=== PATIENT | female | born 1980 | race Asian ===

== ENCOUNTER → 2018-07-02 15:32 | Outpatient (CLI) | payer MEDICAID, SELFPAY ==
[2018-07-02 14:40] VITALS: BMI 21.3
[2018-07-02 16:47] LABS: Follicle Stimulating Hormone 3.4 mIU/mL; Thyroid Stim Hormone (TSH) 1.87 uIU/mL (0.358-3.74)
[2018-07-02 16:48] LABS: Estradiol 104.2 pg/mL; Prolactin 8.1 ng/mL
[2018-07-05 06:38] LABS: DHEA Sulfate 83.6 ug/dL (57.3-279.2)
[2018-07-06 11:09] LABS: Testosterone Free 0.7 pg/mL (0.0-4.2)
[2018-07-08 14:24] LABS: HPV APTIMA, High Risk Negative (Negative)
[2018-07-10 11:31] LABS: 17-Hydroxyprogesterone 171 ng/dL (.)
== END ==
PROVIDERS: Family Provider Internal Medicine; PCP Internal Medicine; Visit Provider Obstetrics & Gynecology
DX: Z12.4 Encounter for screening for malignant neoplasm of cervix (principal); N91.5 Oligomenorrhea, unspecified
CPT/HCPCS: 36415; 82627; 82670; 83001; 83498; 84146; 84402; 84443; 87624; 88175; 82626; G0145

== ENCOUNTER → 2023-08-22 | Outpatient (CLI) | payer BC, SELFPAY ==
[2023-08-22 15:45] LABS: Absolute Lymphocyte Count 2.02 X10^3/uL (0.83-4.51); Absolute Neutrophil Count 7.6 X10^3/uL (2.0-7.7); Basophil# 0.06 X10^3/uL; Basophil% 0.6 % (0-1); Eosinophil# 0.16 X10^3/uL; Eosinophils% 1.5 % (0-5); Hematocrit 36.6 % (37-47); Lymphocyte # 2.02 X10^3/ul (0.83-4.51); Lymphocyte % 19.2 % (19-41); Mean Corp Hgb Conc 32.8 g/dL (32-36); Mean Corpuscular Hgb 30.9 pg (27.0-32.0); Mean Corpuscular Volume 94.3 fL (81-99); Mean Platelet Vol. 11.3 fl (6.2-12.0); Monocyte# 0.68 X10^3/uL; Monocyte% 6.5 % (0-10); NRBC Flagged by Analyzer 0 % (0-5); Neutrophil # 7.56 X10^3/uL (2.7-7.7); Neutrophil % 71.7 % (47-70); Platelet Count 268 K/mm3 (150-450); RBC Distribution Width CV 12.5 % (11.6-14.6); RBC Distribution Width SD 43.7 fl (35.1-43.9); Red Blood Count 3.88 M/mm3 (4.2-5.4); White Blood Count 10.5 K/mm3 (4.4-11.0)
[2023-08-22 16:13] LABS: Vitamin D,25 Hydroxy 37.6 ng/mL
[2023-08-22 16:19] LABS: ALB/GLOB Ratio 0.8 RATIO (0.9-2.4); AST(SGOT) 19 U/L (15-37); Alanine Aminotransfer ALT/SGPT 16 U/L (13-56); Albumin, Serum 3.3 g/dL (3.2-5.0); Alkaline Phosphatase 48 U/L (45-117); Anion Gap 4 (5-15); BUN 8 mg/dL (7-18); BUN/Creat Ratio 13.8 RATIO (10-20); Calcium,Total 8.8 mg/dL (8.5-10.1); Chloride 108 mmol/L (98-107); Cholesterol 214 mg/dL (200); Creatinine, Serum 0.58 mg/dL (0.55-1.02); EST Glomerular Filtration Rate 120 mL/min (>60); Est Glom Filt Rate - Afr Amer 146 mL/min (>60); Glucose 82 mg/dL (74-106); High Density Lipoprotein 59 mg/dL; Potassium 4.1 mmol/L (3.5-5.1); Protein, Total 7.3 g/dL (6.4-8.2); Sodium Level 137 mmol/L (136-145); Thyroid Stim Hormone (TSH) 1.37 uIU/mL (0.358-3.74); Triglycerides 95 mg/dL; Very Low Density Lipoprotein 19 mg/dL (5-40)
== END | disposition home or self-care (01) ==
LOC: BFHLAB 14:07
PROVIDERS: PCP Family Medicine; Visit Provider Family Medicine
DX: Z00.00 Encounter for general adult medical examination without abnormal findings (principal); F42.9 Obsessive-compulsive disorder, unspecified; E55.9 Vitamin D deficiency, unspecified
CPT/HCPCS: 36415; 80053; 80061; 82306; 84443; 85025

== ENCOUNTER → 2023-09-10 | Outpatient (CLI) | payer BC, SELFPAY ==
--- NOTE | 2023-09-10 15:38 | BI_ITS ---
MAMMOGRAPHY - BILATERAL SCREENING REASON FOR EXAM: Female, 43 years old. Routine annual screening examination. PERTINENT HISTORY: Grandmother with breast cancer. TECHNIQUE: Digital bilateral breast mahin (3D mammographic acquisition) in the CC and MLO projections. 2-D mediolateral oblique (MLO) and craniocaudad (CC) views of both breasts were obtained. CAD: Full Field Digital Mammography with Computer Added Detection was performed. COMPARISON: None. Baseline examination. FINDINGS: Breast Composition: The breasts are heterogeneously dense, which may obscure small masses. There are no dominant masses or suspicious calcifications. No other significant abnormalities are identified. There has been no significant change since the prior study. BI/SCRN MAMM (CAD)W/MAHIN BILAT IMPRESSION: Stable bilateral screening mammogram. Yearly follow-up mammogram recommended. (A) ASSESSMENT CATEGORY: BIRADS Category 1: Negative. A letter regarding these results will be sent to the patient by the facility within 30 days. Approximately 10% of breast cancers are not detected by mammography. A normal mammogram should not delay biopsy of a clinically suspicious abnormality. [id number] Electronically Signed: Kyree Jj MD at 8:38 EDT ,
== END | disposition home or self-care (01) ==
LOC: OPBI 15:33
PROVIDERS: PCP Family Medicine; Referring Provider Family Medicine; Visit Provider Family Medicine
DX: Z12.31 Encounter for screening mammogram for malignant neoplasm of breast (principal)
CPT/HCPCS: 77063; 77067

== ENCOUNTER → 2025-05-13 | Outpatient (CLI) | payer MEDICAID, SELFPAY ==
--- OUTSIDE RECORDS SUMMARY | 2025-05-13 17:18 | XMS RPT_ITS | CCD ---
Author Organization [facility] Care Team Providers Care Inspector [employer] Name Role Phone Lenka Alfaro Unavailable Unavailable Cata Sheth MD Unavailable [phone] Cata Sheth MD Unavailable [phone] Abby Flores Referring Unavailable Abby Flores Attending Unavailable Abby Flores Primary Care Unavailable Abby Flores Attending Unavailable Abby Flores Primary Care Unavailable Medications Current Medications Medication Drug Class(es) Dates Sig (Normalized) Sig (Original) cholecalciferol 0.05 mg oral capsule (2 sources) Vitamin D Start: 02-17-2018 take 2000 [IU] by mouth once daily Cholecalciferol (Vitamin D3) Active 2000 UNIT PO DAILY February 17, 2018 12:00am Levonorgestrel-Ethiny l Estrad (4 sources) Progestin, Estrogen, Progestin-contain ing Intrauterine Device Start: 07-02-2018 take 1 tablet by mouth once daily Levonorgestrel-Ethin yl Estrad (Aviane) 0.1-20 mg-mcg tablet Active 1 TABLET PO daily July 02, 2018 4:11pm skip placebo pills when you want to not have a period that month and start new pack immediately Start: 07-02-2018 End: 07-02-2018 take 1 tablet by mouth once daily Levonorgestrel-Ethinyl Estrad (Aviane) 0.1-20 mg-mcg tablet Discontinued 1 TABLET PO daily July 02, 2018 1:00am July 02, 2018 4:13pm medroxyPROGESTERone acetate 10 mg oral tablet (2 sources) Progestin Start: 07-23-2018 take 1 tablet by mouth once daily Medroxyprogesterone (Provera) 10 mg tablet Active 10 MG PO DAILY July 23, 2018 1:00am Vitamin B Complex (B Complex 1) tablet (2 sources) Start: 02-17-2018 take 1 tablet by mouth once daily Vitamin B Complex (B Complex 1) tablet Active 1 TABLET PO DAILY February 17, 2018 12:00am Completed/Discontinued Medications Medication Drug Class(es) Dates Sig (Normalized) Sig (Original) CARBAMIDE PEROXIDE (2 sources) Start: 01-03-2017 End: 01-07-2017 DEBROX 6.5 % SOLN 5 drops in each ear Twice daily x 4 days CARBAMIDE PEROXIDE [id number] Cata Sheth MD Start: 01-03-2017 End: 01-07-2017 DEBROX 6.5 % SOLN 5 drops in each ear Twice daily x 4 days CARBAMIDE PEROXIDE [id number] Cata Sheth MD escitalopram 10 mg oral tablet (10 sources) Serotonin Reuptake Inhibitor Start: 07-19-2016 End: 08-16-2021 take 10 mg by mouth once daily Escitalopram Oxalate Discontinued 10 MG PO DAILY May 22, 2020 9:54am August 16, 2021 4:44pm gabapentin 100 mg oral capsule (2 sources) Anti-epileptic Agent Start: 02-17-2018 End: 07-02-2018 take 100 mg by mouth at bedtime Gabapentin Discontinued 100 MG PO AT BEDTIME February 17, 2018 12:00am July 02, 2018 3:41pm Methylprednisolone (2 sources) Corticosteroid Start: 02-09-2018 End: 02-17-2018 Methylprednisolone Discontinued 0 PO per package directions February 09, 2018 12:00am February 17, 2018 11:10am PO PER PKG DIR mometasone furoate 1 mg/ml topical cream (10 sources) Corticosteroid Start: 03-11-2019 End: 08-16-2021 Mometasone Discontinued 1 APPLIC TOPICAL DAILY May 22, 2020 9:54am August 16, 2021 4:44pm Start: 03-26-2018 End: 07-02-2018 Mometasone Discontinued 1 AP PLIC TOPICAL DAILY March 27, 2018 10:18am July 02, 2018 3:41pm Xekrvsdb-Ptt-Lkhr-Fa-Vit K-Lut (2 sources) Start: 07-19-2016 End: 02-09-2018 Otphtssh-Tyx-Pafl-Fa-Vit K-Lut Discontinued 1 EACH PO DAILY July 19, 2016 1:00am February 09, 2018 3:35pm Drug Treatment Unknown - unknown (1 source) No information a vailable. valACYclovir 1000 mg oral tablet (2 sources) Herpesvirus Nucleoside Analog DNA Polymerase Inhibitor, Herpes Simplex Virus Nucleoside Analog DNA Polymerase Inhibitor, Herpes Zoster Virus Nucleoside Analog DNA Polymerase Inhibitor Start: 02-09-2018 End: 02-17-2018 take 1000 mg by mouth twice daily Valacyclovir Discontinued 1000 MG PO TWICE A DAY February 09, 2018 12:00am February 17, 2018 11:10am Vitamin B Complex-Folic Acid (2 sources) Start: 07-19-2016 End: 02-09-2018 take 0.4 mg by mouth once daily Vitamin B Complex-Folic Acid Discontinued 0.4 MG PO DAILY July 19, 2016 1:00am February 09, 2018 3:35pm Vitamin D3 (2 sources) Start: 07-19-2016 End: 02-09-2018 take 1 tablet by mouth once daily Vitamin D3 Discontinued 1 TABLET PO DAILY July 19, 2016 1:00am February 09, 2018 3:35pm Problems Active Problems Problem Classification Problem Date Documented Da te Episodic/Chronic Anxiety disorders (2 sources) Obsessive-compulsiv e disorder; Translations: [Obsessive-compulsi ve disorder, unspecified] 02-17-2018 Chronic Headache; including migraine (2 sources) Migraine; Translations: [Migraine, unspecified, not intractable, without status migrainosus] 02-17-2018 Chronic Menstrual disorders (2 sources) Oligomenorrhea; Translations: [Oligomenorrhea, unspecified] 07-02-2018 Chronic Mood disorders (2 sources) Mood disorder; Translations: [Unspecified mood [affective] disorder] Onset: 01-03-2017 01-03-2017 Chronic Nutritional deficiencies (2 sources) Vitamin D deficiency; Translations: [Vitamin D deficiency, unspecified] Onset: 01-03-2017 01-03-2017 Chronic Other nutritional; endocrine; and metabolic disorders (2 sources) H/O: Disorder; Translations: [Personal history of other endocrine, nutritional and metabolic disease] 02-17-2018 Episodic Unclassified (1 source) No current problems or disability 01-02-2017 Viral infection (2 sources) Herpes zoster; Translations: [Zoster without complications] 02-18-2018 Episodic Past or Other Problems Problem Classification Problem Date Documented Da te Episodic/Chronic Conditions associated with dizziness or vertigo (2 sources) Vertigo; Translations: [Dizziness and giddiness] Onset: 01-03-2017 01-03-2017 Episodic Other screening for suspected conditions (not mental disorders or infectious disease) (1 source) Encounter for screening mammogram for malignant neoplasm of breast; Translations: [Encounter for screening mammogram for malignant neoplasm of breast] Onset: 12-11-2023 Episodic Results Test Name Value Interpretation Reference Range Facility SCRN MAMM (CAD)W/MAHIN BILATo n 09-10-2023 SCRN MAMM (CAD)W/MAHIN BILAT [facility] [address] [place] [address] SCRN MAMM (CAD)W/MAHIN BILAT MR#: [id number] Acct: [id number] Name: REBECCA WILLIAM Rep #: [id number] : 1980 F 43 From: Kyree christensen MD PCP: Dr. Abby Flores MD Status: [facility] Study: SCRN MAMM (CAD)W/MAHIN BILAT Date of Exam: 08/18 09/09 Exam# [id number] Ordering Dr: Abby Flores MD -[id number] MAMMOGRAPHY - BILATERAL SCREENING REASON FOR EXAM: Female, 43 years old. Routine annual screening examination. PERTINENT HISTORY: Grandmother with breast cancer. TECHNIQUE: Digital bilateral breast mahin (3D mammographic acquisition) in the CC and MLO projections. 2-D mediolateral oblique (MLO) and craniocaudad (CC) views of both breasts were obtained. CAD: Full Field Digital Mammography with Computer Added Detection was performed. COMPARISON: None. Baseline examination. FINDINGS: Breast Composition: The breasts are heterogeneously dense, which may obscure small masses. There are no dominant masses or suspicious calcifications. No other significant abnormalities are identified. There has been no significant change since the prior study. BI/SCRN MAMM (CAD)W/MAHIN BILAT IMPRESSION: Stable bilateral screening mammogram. Yearly follow-up mammogram recommended. (A) ASSESSMENT CATEGORY: BIRADS Category 1: Negative. A letter regarding these results will be sent to the patient by the facility within 30 days. Approximately 10% of breast cancers are not detected by mammography. A normal mammogram should not delay biopsy of a clinically suspicious abnormality. [id number] Electronically Signed: Kyree Jj MD at 8:38 EDT , CC: Dr. Abby Flores MD Marine Structural Designer: Signed Normal [facility] Absolute lymphocyte countOrd ered By: Abby Flores on 08-22-2023 Lymphocytes Auto (Unsp spec) [#/Vol] 2.02 10*3/uL 0.83-4.51 [facility] Automated lymphocyte count a s percentage of total leukocytesOrdered By: Abby Flores on 08-22-2023 Lymphocytes/100 WBC Auto (Unsp spec) 19.2 % 19-41 [facility] Basophil percentageOrdered B y: Abby Flores on 08-22-2023 Basophils/100 WBC (Bld) 0.6 % 0-1 [facility] Bilirubin [Mass/Vol] 0.40 mg/dL 0.20-1.00 [facility] Comment on above: For patients on eltr ombopag therapy, use of Dimension [place] TBIL is not recommended. Chloride [Moles/Vol] 108 mmol/L 98-107 [facility] Cholesterol [Mass/Vol] 214 mg/dL <200 [facility] Comment on above: <200 mg/dL Desirable 200-240 mg/dL Borderline >240 mg/dL High Risk Eosinophils/100 WBC (Bld) 1.5 % 0-5 [facility] Glucose [Mass/Vol] 82 mg/dL 74-106 [facility] Hemoglobin (Bld) [Mass/Vol] 12.0 g/dL 12.0-15.0 [facility] Monocytes/100 WBC (Bld) 6.5 % 0-10 [facility] Neutrophils (Bld) [#/Vol] 7.6 10*3/uL 2.0-7.7 [facility] Neutrophils/100 WBC (Bld) 71.7 % 47-70 [facility] Potassium [Moles/Vol] 4.1 mmol/L 3.5-5.[address] [facility] Protein [Mass/Vol] 7.3 g/dL 6.4-8.2 [facility] Sodium [Moles/Vol] 137 mmol/L 136-145 [facility] Triglyceride [Mass/Vol] 95 mg/dL <199 [facility] Comment on above: The drugs N-Acetylcy steine and Metamizole may falsely depress this assay.Serum Triglycerides Reference Interval Normal <150 mg/dL Borderline high 150 - 199 mg/dL High 200 - 499 mg/dL Very High > or = 500 mg/dL WBC (Bld) [#/Vol] 10.5 10*3/uL 4.4-11.0 [facility] CBC W/Diff, Automatedon 04-0 5-2023 Absolute Lymph 2.02 X10 3/uL Normal 0.83-4.51 [facility] Comment on above: Performed By: #### L 100.0100, L501.9520, L500.4100, L500.4050, L506.1000 #### [facility] [address] [place], [address] Absolute Neut 7.6 X10 3/uL Normal 2.0-7.7 [facility] Comment on above: Performed By: #### L 100.0100, L501.9520, L500.4100, L500.4050, L506.1000 #### [facility] [address] [place], [address] Basophils/100 WBC (Bld) 0.6 % Normal 0-1 [facility] Comment on above: Performed By: #### L 100.0100, L501.9520, L500.4100, L500.4050, L506.1000 #### [facility] [address] [place], [address] Eosinophils/100 WBC (Bld) 1.5 % Normal 0-5 [facility] Comment on above: Performed By: #### L 100.0100, L501.9520, L500.4100, L500.4050, L506.1000 #### [facility] [address] [place], [address] Erythrocyte distribution width (RBC) [Ratio] 12.5 % Normal 11.6-14.6 [facility] Comment on above: Performed By: #### L 100.0100, L501.9520, L500.4100, L500.4050, L506.1000 #### [facility] [address] [place], [address] Hematocrit (Bld) [Volume fraction] 36.6 % Low 37-47 [facility] Comment on above: Performed By: #### L 100.0100, L501.9520, L500.4100, L500.4050, L506.1000 #### [facility] [address] [place], [address] Hemoglobin (Bld) [Mass/Vol] 12.0 g/dL Normal 12.0-15.0 [facility] Comment on above: Performed By: #### L 100.0100, L501.9520, L500.4100, L500.4050, L506.1000 #### [facility] [address] [place], [address] IG% 0.500 Normal 0.0-0.9 [facility] Comment on above: Result Comment: IG% - Immature Granulocytes (promyelocytes, myelocytes and metamyelocytes) > 1% indicates that a LEFT SHIFT is Present. Performed By: #### L 100.0100, L501.9520, L500.4100, L500.4050, L506.1000 #### [facility] [address] [place], [address] Lymphocytes/100 WBC (Bld) 19.2 % Normal 19-41 [facility] Comment on above: Performed By: #### L 100.0100, L501.9520, L500.4100, L500.4050, L506.1000 #### [facility] [address] [place], [address] MCH (RBC) [Entitic mass] 30.9 pg Normal 27.0-32.0 [facility] Comment on above: Performed By: #### L 100.0100, L501.9520, L500.4100, L500.4050, L506.1000 #### [facility] [address] [place], [address] MCHC (RBC) [Mass/Vol] 32.8 g/dL Normal 32-[address] [facility] Comment on above: Performed By: #### L 100.0100, L501.9520, L500.4100, L500.4050, L506.1000 #### [facility] [address] [place], [address] MCV (RBC) [Entitic vol] 94.3 fL Normal 81-99 [facility] Comment on above: Performed By: #### L 100.0100, L501.9520, L500.4100, L500.4050, L506.1000 #### [facility] [address] [place], [address] Monocytes/100 WBC (Bld) 6.5 % Normal 0-10 [facility] Comment on above: Performed By: #### L 100.0100, L501.9520, L500.4100, L500.4050, L506.1000 #### [facility] [address] [place], [address] Neutrophils/100 WBC (Bld) 71.7 % High 47-70 [facility] Comment on above: Performed By: #### L 100.0100, L501.9520, L500.4100, L500.4050, L506.1000 #### [facility] [address] [place], [address] Nucleated RBC (Bld) [#/Vol] 0 10*3/uL Normal 0-5 [facility] Comment on above: Performed By: #### L 100.0100, L501.9520, L500.4100, L500.4050, L506.1000 #### [facility] [address] [place], [address] Platelet mean volume (Bld) [Entitic vol] 11.3 fL Normal 6.2-12.0 [facility] Comment on above: Performed By: #### L 100.0100, L501.9520, L500.4100, L500.4050, L506.1000 #### [facility] [address] [place], [address] Platelets (Bld) [#/Vol] 268 10*3/uL Normal 150-450 [facility] Comment on above: Performed By: #### L 100.0100, L501.9520, L500.4100, L500.4050, L506.1000 #### [facility] [address] [place], [address] RBC (Bld) [#/Vol] 3.88 10*6/uL Low 4.2-5.4 [facility] Comment on above: Performed By: #### L 100.0100, L501.9520, L500.4100, L500.4050, L506.1000 #### [facility] [address] [place], [address] RDW SD 43.7 fl Normal 35.1-43.9 [facility] Comment on above: Performed By: #### L 100.0100, L501.9520, L500.4100, L500.4050, L506.1000 #### [facility] [address] [place], [address] WBC (Bld) [#/Vol] 10.5 10*3/uL Normal 4.4-11.0 [facility] Comment on above: Performed By: #### L 100.0100, L501.9520, L500.4100, L500.4050, L506.1000 #### [facility] [address] [place], [address] Comprehensive Metabolic Prof ilon 08-22-2023 Albumin [Mass/Vol] 3.3 g/dL Normal 3.2-5.0 [facility] Comment on above: Performed By: #### L 100.0100, L501.9520, L500.4100, L500.4050, L506.1000 #### [facility] [address] [place], [address] Albumin/Globulin [Mass ratio] 0.8 {ratio} Low 0.9-2.4 [facility] Comment on above: Performed By: #### L 100.0100, L501.9520, L500.4100, L500.4050, L506.1000 #### [facility] [address] [place], [address] ALK P 48 U/L Normal 45-117 [facility] Comment on above: Performed By: #### L 100.0100, L501.9520, L500.4100, L500.4050, L506.1000 #### [facility] [address] [place], [address] ALT [Catalytic activity/Vol] 16 U/L Normal 13-56 [facility] Comment on above: Performed By: #### L 100.0100, L501.9520, L500.4100, L500.4050, L506.1000 #### [facility] [address] [place], [address] AST [Catalytic activity/Vol] 19 U/L Normal 15-37 [facility] Comment on above: Performed By: #### L 100.0100, L501.9520, L500.4100, L500.4050, L506.1000 #### [facility] [address] [place], [address] Bilirubin [Mass/Vol] 0.40 mg/dL Normal 0.20-1.00 [facility] Comment on above: Result Comment: For patients on eltrombopag therapy, use of Dimension [place] TBIL is not recommended. Performed By: #### L 100.0100, L501.9520, L500.4100, L500.4050, L506.1000 #### [facility] [address] [place], [address] BUN/CRE 13.8 RATIO Normal 10-20 [facility] Comment on above: Performed By: #### L 100.0100, L501.9520, L500.4100, L500.4050, L506.1000 #### [facility] [address] [place], [address] CA,Total 8.8 mg/dL Normal 8.5-10.1 [facility] Comment on above: Performed By: #### L 100.0100, L501.9520, L500.4100, L500.4050, L506.1000 #### [facility] [address] [place], [address] Chloride [Moles/Vol] 108 mmol/L High 98-107 [facility] Comment on above: Performed By: #### L 100.0100, L501.9520, L500.4100, L500.4050, L506.1000 #### [facility] [address] [place], [address] CO2 [Moles/Vol] 25.0 mmol/L Normal 21.0-32.0 [facility] Comment on above: Performed By: #### L 100.0100, L501.9520, L500.4100, L500.4050, L506.1000 #### [facility] [address] [place], [address] Creatinine [Mass/Vol] 0.58 mg/dL Normal 0.55-1.[address] [facility] Comment on above: Result Comment: The validity of the calculated GFR GFRAA in patients over 70 years has not been determined. Clinical correlation is essential. Performed By: #### L 100.0100, L501.9520, L500.4100, L500.4050, L506.1000 #### [facility] [address] [place], [address] EST GFR - AA 146 mL/min Normal >60 [facility] Comment on above: Result Comment: Afri can Cymraes GFR Calc Performed By: #### L 100.0100, L501.9520, L500.4100, L500.4050, L506.1000 #### [facility] [address] [place], [address] GAP 4 Low 5-15 [facility] Comment on above: Performed By: #### L 100.0100, L501.9520, L500.4100, L500.4050, L506.1000 #### [facility] [address] [place], [address] GFR/1.73 sq M.predicted among non-blacks MDRD (S/P/Bld) [Vol rate/Area] 120 mL/min/{1.73_m2} Normal >60 [facility] Comment on above: Result Comment: Non- GFR Calc Performed By: #### L 100.0100, L501.9520, L500.4100, L500.4050, L506.1000 #### [facility] [address] [place], [address] Globulin (S) [Mass/Vol] 4.0 g/dL Normal 2.2-4.2 [facility] Comment on above: Performed By: #### L 100.0100, L501.9520, L500.4100, L500.4050, L506.1000 #### [facility] [address] [place], [address] Glucose [Mass/Vol] 82 mg/dL Normal 74-106 [facility] Comment on above: Performed By: #### L 100.0100, L501.9520, L500.4100, L500.4050, L506.1000 #### [facility] [address] [place], [address] Potassium [Moles/Vol] 4.1 mmol/L Normal 3.5-5.[address] [facility] Comment on above: Performed By: #### L 100.0100, L501.9520, L500.4100, L500.4050, L506.1000 #### [facility] [address] [place], [address] Sodium [Moles/Vol] 137 mmol/L Normal 136-145 [facility] Comment on above: Performed By: #### L 100.0100, L501.9520, L500.4100, L500.4050, L506.1000 #### [facility] [address] [place], [address] T PROT 7.3 g/dL Normal 6.4-8.2 [facility] Comment on above: Performed By: #### L 100.0100, L501.9520, L500.4100, L500.4050, L506.1000 #### [facility] [address] [place], [address] Urea nitrogen [Mass/Vol] 8 mg/dL Normal 7-18 [facility] Comment on above: Performed By: #### L 100.0100, L501.9520, L500.4100, L500.4050, L506.1000 #### [facility] [address] [place], [address] Determination of erythrocyte mean corpuscular volume (MCV)Ordered By: Abby Flores on 08-22-2023 MCV (RBC) [Entitic vol] 94.3 fL 81-99 [facility] Erythrocyte distribution wid th ratioOrdered By: [facility]23 Erythrocyte distribution width (RBC) [Ratio] 12.5 % 11.6-14.6 [facility] Erythrocyte distribution wid th standard deviationOrdered By: [facility] on 08-22-2023 Erythrocyte distribution width (RBC) [Entitic vol] 43.7 fL 35.1-43.9 [facility] Hematocrit Auto (Bld) [Volum e fraction]Ordered By: [facility] on 08-22-2023 Hematocrit (Bld) [Volume fraction] 36.6 % 37-47 [facility] Immature granulocytes/100 WB C Auto (Bld)Ordered By: [facility] on 08-22-2023 Immature granulocytes/100 WBC (Bld) 0.500 % 0.0-0.9 [facility] Comment on above: IG% - Immature Granu locytes (promyelocytes, myelocytes and metamyelocytes) > 1% indicates that a LEFT SHIFT is Present. Laboratory - Chemistry and C hemistry - challengeOrdered By: Abby Flores on 08-22-2023 Albumin/Globulin [Mass ratio] 0.8 {ratio} 0.9-2.4 [facility] ALP [Catalytic activity/Vol] 48 U/L 45-117 [facility] ALT [Catalytic activity/Vol] 16 U/L 13-56 [facility] Cholesterol in HDL [Mass/Vol] 59 mg/dL >40 [facility] Comment on above: The drugs N-Acetylcy steine and Metamizole may falsely depress this assay. Reference Range HDL <40 mg/dL Low HDL Cholesterol HDL >or= 60 mg/dL High HDL Cholesterol Cholesterol in LDL [Mass/Vol] 136 mg/dL 0-130 [facility] CO2 [Moles/Vol] 25.0 mmol/L 21.0-32.0 [facility] Globulin (S) [Mass/Vol] 4.0 g/dL 2.2-4.2 [facility] Urea nitrogen/Creatinine [Mass ratio] 13.8 mg/mg 10-20 [facility] - Hematology and Cell countsOrdered By: Abby Flores on 08-22-2023 MCH (RBC) [Entitic mass] 30.9 pg 27.0-32.0 [facility] MCHC (RBC) [Mass/Vol] 32.8 g/dL 32-[address] [facility] Nucleated RBC/100 WBC (Bld) [Ratio] 0 % 0-5 [facility] Platelet mean volume (Bld) [Entitic vol] 11.3 fL 6.2-12.0 [facility] Platelets (Bld) [#/Vol] 268 10*3/uL 150-450 [facility] Lipid Profileon 08-22-2023 Cholesterol [Mass/Vol] 214 mg/dL High 200 [facility] Comment on above: Result Comment: <200 mg/dL Desirable 200-240 mg/dL Borderline >240 mg/dL High Risk Performed By: #### L 100.0100, L501.9520, L500.4100, L500.4050, L506.1000 #### [facility] [address] [place], [address] Cholesterol in HDL [Mass/Vol] 59 mg/dL Normal [facility] Comment on above: Result Comment: The drugs N-Acetylcysteine and Metamizole may falsely depress this assay. Reference Range HDL <40 mg/dL Low HDL Cholesterol HDL >or= 60 mg/dL High HDL Cholesterol Performed By: #### L 100.0100, L501.9520, L500.4100, L500.4050, L506.1000 #### [facility] [address] [place], [address] Cholesterol in LDL [Mass/Vol] 136 mg/dL High 0-130 [facility] Comment on above: Performed By: #### L 100.0100, L501.9520, L500.4100, L500.4050, L506.1000 #### [facility] [address] [place], [address] Cholesterol in VLDL [Mass/Vol] 19 mg/dL Normal 5-40 [facility] Comment on above: Performed By: #### L 100.0100, L501.9520, L500.4100, L500.4050, L506.1000 #### [facility] [address] [place], [address] Triglyceride [Mass/Vol] 95 mg/dL Normal [facility] Comment on above: Result Comment: The drugs N-Acetylcysteine and Metamizole may falsely depress this assay. Serum Triglycerides Reference Interval Normal <150 mg/dL Borderline high 150 - 199 mg/dL High 200 - 499 mg/dL Very High > or = 500 mg/dL Performed By: #### L 100.0100, L501.9520, L500.4100, L500.4050, L506.1000 #### [facility] [address] [place], [address] No Panel InformationOrdered By: Abby Flores on 08-22-2023 Estimated GFR (MDRD) Amer 146 mL/min >60 [facility] Comment on above: GFR Calc Estimated GFR (MDRD) Non-Af Amer 120 mL/min >60 [facility] Comment on above: Non- GFR Calc Vitamin D 25-Hydroxy 37.6 ng/mL [facility] Comment on above: Vitamin D 25(OH) Sta tus Range Deficiency <20 ng/mL (50nmol/L) Insufficiency 20 - 30 ng/mL (50 - 75 nmol/L) Sufficiency 30 - 100 ng/mL (75 - 250 nmol/L) Toxicity >100 ng/mL (>250 nmol/L) VLDL Cholesterol 19 mg/dL 5-40 [facility] RBC Auto (Bld) [#/Vol]Ordere d By: Abby Flores on 08-22-2023 RBC (Bld) [#/Vol] 3.88 10*6/uL 4.2-5.4 [facility] [facility] Serum or plasma calcium anabell urement (mass/volume)Ordered By: Abby Flores on 08-22-2023 Calcium [Mass/Vol] 8.8 mg/dL 8.5-10.1 [facility] Serum or plasma creatinine m easurement (mass/volume)Ordered By: Abby Flores on 08-22-2023 Creatinine [Mass/Vol] 0.58 mg/dL 0.55-1.[address] [facility] Comment on above: The validity of the calculated GFR & GFRAA in patients over 70 years has not been determined. Clinical correlation is essential. Serum or plasma thyroid stim ulating hormone (TSH) measurement (units/volume)Ordered By: Abby Flores on 08-22-2023 TSH Qn 1.37 uIU/mL 0.358-3.74 [facility] Serum or plasma urea nitroge n measurement (mass/volume)Ordered By: Abby Flores on 08-22-2023 Urea nitrogen [Mass/Vol] 8 mg/dL 7-18 [facility] Thin prep Papanicolaou smear with manual screeningOrdered By: Abby Flores on 08-22-2023 Thin prep Papanicolaou smear with manual screening 3.3 g/dL 3.2-5.0 [facility] Thin prep Papanicolaou smear with manual screening 19 U/L 15-37 [facility] Thin prep Papanicolaou smear with manual screening 4 5-15 [facility] Thyroid Stim Hormone (TSH)on 08-22-2023 TSH 1.37 uIU/mL Normal 0.358-3.74 [facility] Comment on above: Performed By: #### L 100.0100, L501.9520, L500.4100, L500.4050, L506.1000 #### [facility] [address] [place], [place], [address] Vitamin D,25 Hydroxyon 08-21 Vitamin D 25-OH 37.6 ng/mL Normal [facility] Comment on above: Result Comment: Anais min D 25(OH) Status Range Deficiency <20 ng/mL (50nmol/L) Insufficiency 20 - 30 ng/mL (50 - 75 nmol/L) Sufficiency 30 - 100 ng/mL (75 - 250 nmol/L) Toxicity >100 ng/mL (>250 nmol/L) Performed By: #### L 100.0100, L501.9520, L500.4100, L500.4050, L506.1000 #### [facility] [address] [place], [place], [id number] Lab Report: Basic Metabolic Profile (BMP)on 01-03-2017 Anion gap 8 mmol/L Invalid Interpretation Code 5-15 [facility] Work Phone: BUN/Creatinine Ratio 19.5 RATIO Invalid Interpretation Code 10-20 [facility] Work Phone: Calcium 9.2 mg/dL Invalid Interpretation Code 8.5-10.1 [facility] Work Phone: Chloride 101 mmol/L Invalid Interpretation Code 98-107 [facility] Work Phone: CO2 28.0 mmol/L Invalid Interpretation Code 21.0-32.0 [facility] Work Phone: Creatinine 0.72 mg/dL Invalid Interpretation Code 0.55-1.02 [facility] Work Phone: eGFR (non-black) 97 mL/min/{1.73_m2} Invalid Interpretation Code >60 [facility] Work Phone: eGFR (non-black) 117 mL/min/{1.73_m2} Invalid Interpretation Code >60 [facility] Work Phone: Glucose 70 mg/dL Invalid Interpretation Code 70-110 [facility] Work Phone: Potassium 3.5 mmol/L Invalid Interpretation Code 3.5-5.1 [facility] Work Phone: Sodium 137 mmol/L Invalid Interpretation Code 136-145 [facility] Work Phone: Urea nitrogen 14 mg/dL Invalid Interpretation Code 7-18 [facility] Work Phone: Lab Report: CBC W/Diff, Auto matedon 01-03-2017 Basophils/100 leukocytes 0.5 % Invalid Interpretation Code 0-1 [facility] Work Phone: Eosinophils/100 leukocytes 3.5 % Invalid Interpretation Code 0-5 [facility] Work Phone: Erythrocytes (RBC) 4.15 10*6/uL Low 4.2-5.4 [facility] Work Phone: Hematocrit (HCT) 38.6 % Invalid Interpretation Code 37-47 [facility] Work Phone: Hemoglobin (HGB) 13.1 g/dL Invalid Interpretation Code 12.0-15.0 [facility] Work Phone: immature granulocytes, percentage of total cells, blood 0.200 % Invalid Interpretation Code 0.0-0.9 [facility] Work Phone: Lymphocytes 2.76 X10 3/UL Invalid Interpretation Code 0.83-4.51 [facility] Work Phone: Lymphocytes/100 leukocytes 27.9 % Invalid Interpretation Code 19-41 [facility] Work Phone: MCH 31.6 pg Invalid Interpretation Code 27.0-32.0 [facility] Work Phone: MCHC 33.9 G/GL Invalid Interpretation Code 32-36 [facility] Work Phone: MCV 93.0 fL Invalid Interpretation Code 81-99 [facility] Work Phone: Monocytes/100 leukocytes 7.9 % Invalid Interpretation Code 0-10 [facility] Work Phone: neutrophil count, blood 5.9 X10 3/UL Invalid Interpretation Code 2.0-7.7 [facility] Work Phone: Neutrophils/100 leukocytes 60.0 % Invalid Interpretation Code 47-70 [facility] Work Phone: Platelets 276 10*3/mm3 Invalid Interpretation Code 150-450 [facility] Work Phone: PMV by Shayna 11.5 fL Invalid Interpretation Code 6.2-12.0 [facility] Work Phone: RDW-CA 11.9 % Invalid Interpretation Code 11.6-14.6 [facility] Work Phone: red blood cell distribution width, size density 39.8 fL Invalid Interpretation Code 35.1-43.9 [facility] Work Phone: WBC (Leukocytes) 9.9 10*3/uL Invalid Interpretation Code 4.4-11.0 [facility] Work Phone: Lab Report: Vitamin D,25 Hyd roxyon 01-03-2017 vitamin D 25-hydroxy, serum 16.7 ng/mL Invalid Interpretation Code [facility] Work Phone: Office Visit: New Pt. Visito n 01-03-2017 Documentation of current medications (procedure) Done Invalid Interpretation Code [facility] Work Phone: Fall risk assessment No Invalid Interpretation Code [facility] Work Phone: Protein mass conc Done [facility] Work Phone: Tobacco smoking status NHIS Never smoker [facility] Work Phone: Tobacco use CPHS Never smoker Invalid Interpretation Code [facility] Work Phone: Vital Signs Date Time Vital Sign Value Performing Clinician Facility 01-03-2017 15:10-0400 BMI (Body Mass Index) 20.7 kg/m2 Cata Sheth MD [facility] Work Phone: 01-03-2017 15:10-0400 Body Temperature 98.6 [degF] Cata Sheth MD [facility] Work Phone: 01-03-2017 15:10-0400 BP Diastolic 77 mm[Hg] Cata Sheth MD [facility] Work Phone: 01-03-2017 15:10-0400 BP Diastolic 76 mm[Hg] Cata Sheth MD [facility] Work Phone: 01-03-2017 15:10-0400 BP Diastolic 75 mm[Hg] Cata Sheth MD [facility] Work Phone: 01-03-2017 15:10-0400 BP Systolic 119 mm[Hg] Cata Sheth MD [facility] Work Phone: 01-03-2017 15:10-0400 BP Systolic 115 mm[Hg] Cata Sheth MD [facility] Work Phone: 01-03-2017 15:10-0400 BP Systolic 109 mm[Hg] Cata Sheth MD [facility] Work Phone: 01-03-2017 15:10-0400 Height 152.4 cm Cata Sheth MD [facility] Work Phone: 01-03-2017 15:10-0400 Pulse (Heart Rate) 74 /min Cata Sheth MD [facility] Work Phone: 01-03-2017 15:10-0400 Weight 48.08 kg Cata Sheth MD [facility] Work Phone: Encounters Encounter Date Encounter Type Care Provider Facility Start: 08-07-2024 Encounter for genera l adult medical examination without abnormal findings [facility] Start: 09-10-2023 End: 09-10-[address] [facility] Work Phone: Start: 09-10-2023 End: 09-10-2023 Patient encounter procedure [facility] Work Phone: Start: 09-10-2023 End: 09-10-2023 ambulatory [facility] Facility:[facility] Start: 08-22-2023 End: 08-22-[address] [facility] Work Phone: Start: 08-22-2023 End: 08-22-2023 Patient encounter procedure [facility] Start: 08-22-2023 End: 08-22-2023 ambulatory Abby Flores Facility:[facility] Procedures Date Procedure Procedure Detail Performing Clinician Start: 09-10-2023 Screening mammography Start: 01-03-2017 End: 01-08-2017 *BMP Cata Lopez Work Phone: Start: 01-03-2017 End: 01-08-2017 *CBC with Differential Cata weaver MD Work Phone: Start: 01-03-2017 End: 01-08-2017 25-Hydroxyvitamin D2+25-Hydroxyvitamin D3 [Mass/volume] in Serum or Plasma Cata Sheth MD Work Phone: Plan of Treatment Date Care Activity Detail Author Start: 01-03-2017 End: 01-03-2017 Appointment Appointment [facility] Work Phone: Start: 01-03-2017 End: 01-08-2017 *BMP *BMP [facility] Work Phone: Start: 01-03-2017 End: 01-08-2017 *CBC with Differential *CBC with Differential [facility] Work Phone: Start: 01-03-2017 End: 01-08-2017 25-Hydroxyvitamin D2+25-Hydroxyvitamin D3 [Mass/volume] in Serum or Plasma *Vitamin D (Calciferol) [facility] Work Phone: Payers Date Payer Category Payer Self-pay [id number] 2023 Unknown [id number] Unknown [employer] [facility] *DONOT USE* [id number] Unknown [id number] Unknown [id number] Social History Date Type Detail Facility Start: 07-02-2018 [facility] Start: 1980 Sex Assigned At Female [facility] Evaluation note Note Date & Type Note Facility Evaluation note No assessment information availa ble [facility] Work Phone: Advance Directives No Advanced Directives Records Found Advance Directive Response Recorded Date/ Time Living Will No July 20, 2016 12:44am Power of Exerciser No July 20 12:44am Chief Complaint and Reason for Visit Chief Complaint SCREENING Summary Purpose Family History No Family History Records Found Additional Source Comments Care Teams (unrecognized sec tion and content) Team Status: Active Member Role Status Dates Dr. Cata Sheth MD Family Provider Active Dr. Abby Flores MD Primary Care Provider Active Team Status: Inactive Member Role Status Dates Dr. Abby Flores MD Primary Care Provider, Attendin g Provider Active Team Status: Inactive Member Role Status Dates Dr. Abby Flores MD Primary Care Prov ider, Attending Provider, Referring Provider Active Goals (unrecognized section and content) Goals may be documented in a n alternate sectionGoals may be documented in an alternate section INFORMATION SOURCE (unrecogn ized section and content) DATE CREATED AUTHOR 08/08/2024 [facility] FOR RECORDS PERTAINING TO PATIENTS WHO ARE OR HAVE BEEN ENROLLED IN A CHEMICAL DEPENDENCY/SUBSTANCEABUSE PROGRAM, SOME INFORMATION MAY BE OMITTED. This clinical summary was aggregated from multiple sources. Caution should be exercised in using it in the provision of clinical care. This summary normalizes information from multiple sources, and as a consequence, information in this document may materially change the coding, format and clinical context of patient data. In addition, data may be omitted in some cases. CLINICAL DECISIONS SHOULD BE BASED ON THE PRIMARY CLINICAL RECORDS. [employer] [facility]. provides no warranty or guarantee of the accuracy or completeness of information in this document.
[2025-05-18 13:08] LABS: Age Gdln ACOG Testing 30-65 (.); HPV APTIMA, High Risk Negative (Negative)
== END | disposition home or self-care (01) ==
LOC: LABSPEC 17:15
PROVIDERS: PCP Family Medicine; Referring Provider Family Medicine; Visit Provider Family Medicine
DX: Z12.4 Encounter for screening for malignant neoplasm of cervix (principal)
CPT/HCPCS: 87624; 88175; G0145